=== PATIENT | male | born 1975 | race American Indian/Alaskan Native ===

== ENCOUNTER 2020-11-07 20:04 | Emergency (ER) | payer OTHER ==
[2020-11-07 20:41] VITALS: BP 149/89
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
== END 2020-11-07 21:50 | disposition home or self-care (01) ==
LOC: ED 20:04
DX: M54.5 Low back pain (principal); Z87.891 Personal history of nicotine dependence; V49.49XA Driver injured in collision with other motor vehicles in traffic accident, initial encounter; Y93.89 Activity, other specified; Y92.488 Other paved roadways as the place of occurrence of the external cause; Y99.8 Other external cause status
CPT/HCPCS: 99282